=== PATIENT | female | born 1990 | race Caucasian/White ===

== ENCOUNTER 2022-06-19 17:18 | Emergency (ER) | payer BC ==
[~2022-06-19] VITALS: Ht 157.5 cm; Wt 56.7 kg
[2022-06-19] MEDS ORDERED: ONDANSETRON 4 MG/2 ML VIAL IV ONE (18:00)
[2022-06-19] MEDS ORDERED: IV NORMAL SALINE 1000 ML BAG IV ONE (18:00)
[2022-06-19 18:03] LABS: *BLOOD, URINE NEGATIVE (NEGATIVE); *CLARITY,URINE CLEAR (CLEAR); *COLOR,URINE YELLOW (YELLOW); *KETONES,URINE 1+ (NEGATIVE); *URINE HCG, QUAL NEGATIVE (NEGATIVE); LEUKOCYTE ESTERASE ,URINE NEGATIVE (NEGATIVE); NITRITE, URINE NEGATIVE (NEGATIVE); PH,URINE 6.5 (5.0-8.0); UGLUCOSE NEGATIVE (NEGATIVE)
[2022-06-19] MEDS ORDERED: ONDANSETRON 4 MG/2 ML VIAL ONE (18:07)
[2022-06-19 18:09] LABS: *BILIRUBIN,URIN 1+ (NEGATIVE)
[2022-06-19 18:16] LABS: HEMATOCRIT 45.8 % (31.2-41.9); MEAN CORPUSCULAR HEMOGLOBIN 30.1 uug (24.7-32.8); MEAN CORPUSCULAR VOLUME 91.2 fL (75.5-95.3); PLATELET COUNT (AUTO) 172 K/uL (179-408)
[2022-06-19 18:16] LABS: BACTERIA,URINE NONE SEEN /HPF (NONE SEEN); RBC,URINE 0-3 /HPF (0-3); SQUAMOUS EPITHELIAL CELL,UR FEW /HPF (NONE SEEN); WBC,URINE 0-3 /HPF (0-3)
[2022-06-19 18:45] LABS: ALANINE AMINOTRANSFERASE 64 U/L (14-59); ALKALINE PHOSPHATASE 62 U/L (50-136); ASPARTATE AMINOTRANSFERASE 51 U/L (15-37); BILIRUBIN,DIRECT 0.1 mg/dL (0.0-0.2); BILIRUBIN,TOTAL 0.3 mg/dL (0.2-1.0); CARBON DIOXIDE 27 mmol/L (21-32); CHLORIDE 104 mmol/L (98-107); CREATININE 0.9 mg/dL (0.6-1.3); GLUCOSE 123 mg/dL (74-106); LIPASE 209 U/L (73-393); POTASSIUM 3.9 mmol/L (3.5-5.1); TOTAL PROTEIN, SERUM 7.8 g/dL (6.4-8.2); UREA NITROGEN, BLOOD 14 mg/dL (7-18)
--- NOTE | 2022-06-19 18:45 | NUR ---
Pt arrived in the ED w/ c/o nausea, dizziness and syncope [employer] to the ED. Seen by Dr. Borges for MSE.
[2022-06-19] MEDS ORDERED: ONDA4TAB5 PO (19:11)
--- NOTE | 2022-06-19 19:15 | NUR ---
Endorsed to Debbie MUNGUIA.
--- NOTE | 2022-06-19 20:14 | NUR ---
Patient discharged to home in stable condition. Written and verbal after care instructions given. Patient verbalizes understanding of instructions. Stressed follow up or return to ER for worsening s/s.
[2022-06-19 20:25] VITALS: BP 110/65
== END 2022-06-19 20:20 | disposition home or self-care (01) ==
LOC: ER 17:18
DX: R55 Syncope and collapse (principal); M79.10 Myalgia, unspecified site; R10.9 Unspecified abdominal pain; S09.90XA Unspecified injury of head, initial encounter; W18.39XA Other fall on same level, initial encounter; Y92.89 Other specified places as the place of occurrence of the external cause
CPT/HCPCS: 36415; 83690; 84484; 84703; 85025; 93005; A4663; J2405; J7040